=== PATIENT | female | born 1990 | race Caucasian/White ===

== ENCOUNTER → 2017-01-21 | Outpatient (CLI) | payer OTHER ==
[~2017-01-21] MED LIST: ALBUTEROL-200 PUFFS/ IH; AUGMENTIN 875-1 EACH PO; METFORMIN500 MG PO; TESSALON PERLE100 M1 PO
[2017-01-23 04:36] LABS: HIV Screen 4th Generation wRfx Non Reactive (Non Reactive)
[2017-01-23 08:37] LABS: HBsAg Screen Negative (Negative); Hep C Virus Ab 0.1 (0.0-0.9); Rapid Plasma Reagin, Quant Non Reactive (NonRea<1:1)
== END ==
LOC: LAB 14:20
PROVIDERS: Obstetrics & Gynecology
DX: Z20.2 Contact with and (suspected) exposure to infections with a predominantly sexual mode of transmission (principal)
CPT/HCPCS: G0432